=== PATIENT | male | born 1965 ===

== ENCOUNTER 2018-10-29 13:28 | Outpatient (CLI) | payer MEDICARE | END 2018-10-29 13:29 | disposition home or self-care (01) | LOC: LAB 13:28 | DX: E11.9 Type 2 diabetes mellitus without complications (principal) ==

== ENCOUNTER 2019-01-06 11:35 | Outpatient (CLI) | payer MEDICARE | END 2019-01-06 11:36 | disposition home or self-care (01) | LOC: LAB 11:35 ==